=== PATIENT | female | born 1965 | race Caucasian/White ===

== ENCOUNTER 2018-10-27 21:02 | Emergency (ER) | payer BC ==
[~2018-10-27] VITALS: Ht 172.7 cm; Wt 77.1 kg
[2018-10-27 21:43] LABS: BASOPHILS % (AUTO) 0.6 % (0.0-2.0); EOSINOPHILS # (AUTO) 0.1 K/uL (0.0-0.7); HEMATOCRIT 39.7 % (31.2-41.9); HEMOGLOBIN 13.3 g/dL (10.9-14.3); LYMPHOCYTES % (AUTO) 16.3 % (20.5-51.5); MEAN CORPUSCULAR HEMOGLOBIN 31.1 uug (24.7-32.8); MEAN CORPUSCULAR HGB CONC 34 g/dL (32.3-35.6); MEAN CORPUSCULAR VOLUME 92.5 fL (75.5-95.3); MONOCYTES # (AUTO) 0.4 K/uL (2.0-10.0); NEUTROPHILS # (AUTO) 4.6 K/uL (1.8-8.9); NEUTROPHILS % (AUTO) 75.1 % (38.5-71.5); PLATELET COUNT (AUTO) 161 K/uL (179-408); RED BLOOD CELL COUNT(AUTO) 4.29 MIL/uL (3.63-4.92); WHITE BLOOD COUNT (AUTO) 6.2 K/uL (3.8-11.8)
[2018-10-27] MEDS ORDERED: MORPHINE SULFATE 4 MG/1 ML DISP.SYRIN IV ONE (21:45)
[2018-10-27 21:48] LABS: *BILIRUBIN,URIN 1+ (NEGATIVE); *BLOOD, URINE 1+ (NEGATIVE); *CLARITY,URINE SLIGHTLY CLOUDY (CLEAR); *COLOR,URINE YELLOW (YELLOW); *KETONES,URINE TRACE (NEGATIVE); *UROBILINOGEN,URINE 0.2 E.U./dl (NORMAL); LEUKOCYTE ESTERASE ,URINE TRACE (NEGATIVE); NITRITE, URINE NEGATIVE (NEGATIVE); PH,URINE 5.5 (5.0-8.0); UGLUCOSE NEGATIVE (NEGATIVE)
[2018-10-27 21:51] LABS: CREATININE 0.7 mg/dL (0.6-1.3); POTASSIUM 3.4 mmol/L (3.5-5.1)
[2018-10-27 21:52] LABS: *URINE HCG, QUAL NEGATIVE (NEGATIVE)
[2018-10-27 21:53] LABS: RBC,URINE 0-3 /HPF (0-3)
[2018-10-27 21:54] LABS: BACTERIA,URINE FEW /HPF (NONE SEEN); MUCUS,URINE MODERATE /LPF (0-FEW); SQUAMOUS EPITHELIAL CELL,UR MODERATE /HPF (NONE SEEN)
[2018-10-27] MEDS ORDERED: MORPHINE SULFATE 4 MG/1 ML DISP.SYRIN ONE ×2 (21:54→23:55)
[2018-10-27 21:56] LABS: BILIRUBIN,DIRECT 0.1 mg/dL (0.0-0.2); BILIRUBIN,TOTAL 0.2 mg/dL (0.2-1.0); TOTAL PROTEIN, SERUM 6.9 g/dL (6.4-8.2)
[2018-10-27] MEDS ORDERED: IV NORMAL SALINE 250 ML IV ONE (22:27)
[2018-10-27] MEDS ORDERED: IOHEXOL 300MG/ML 100 ML INFUS..BTL ONE (22:27)
--- NOTE | 2018-10-27 22:40 | NUR ---
Pt went down to radiology dept. for CT scan. No acute distress noted.
[2018-10-27] MEDS ORDERED: MORPHINE SULFATE 2 MG/1 ML DISP.SYRIN ONE (23:55)
[2018-10-28] MEDS ORDERED: MORPHINE SULFATE 4 MG/1 ML DISP.SYRIN IV ONE
--- NOTE | 2018-10-28 00:13 | NUR ---
Female wheel cutter accompanied female patient for Dr. Robertson for pelvic exam.
[2018-10-28] MEDS ORDERED: METRONIDAZOLE 500 MG TABLET PO ONE (00:15)
[2018-10-28] MEDS ORDERED: LEVOFLOXACIN 500 MG TABLET PO ONE (00:15)
[2018-10-28] MEDS ORDERED: METRONIDAZOLE 500 MG TABLET ONE (00:18)
[2018-10-28] MEDS ORDERED: LEVOFLOXACIN 500 MG TABLET ONE (00:18)
--- NOTE | 2018-10-28 00:28 | NUR ---
IV removed. Catheter intact and site benign. Pressure and 4x4 gauze applied to site. No bleeding noted.
[2018-10-28 00:31] VITALS: BP 113/63
--- NOTE | 2018-10-28 00:31 | NUR ---
Patient discharged to home in stable conditon. Written and verbal after care instructions given. Patient verbalizes understanding of instructions. Pt left ER in stable gait with who will drive home. All belongings w pt. VSS. No acute distress noted.
== END 2018-10-28 00:32 | disposition home or self-care (01) ==
LOC: ER 21:05
DX: R10.30 Lower abdominal pain, unspecified (principal)
CPT/HCPCS: 36415; 74177; 80048; 80076; 81001; 83690; 84703; 85025; 87077; 87086; 96374; 96375; 99284; J2270 ×3; Q9967; A4663; J7050